=== PATIENT | female | born 2000 | race Caucasian/White ===

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

== ENCOUNTER → 2020-03-06 | Outpatient (CLI) | payer OTHER ==
[~2020-03-06] MED LIST: METHACHOLINE KIT (J7674) INH ONE
--- NOTE | 2020-03-06 11:13 | PFTRPT ---
Height: 64.00 Inches Weight: 175.00 Lbs BSA: 1.85 Diagnosis: J45.20 DATE: 03/06/2020 ORDERED BY: JOE Flaherty. QUALITY: Study of excellent technical quality. PROCEDURE: Under protocol, methacholine was administered. At a dose of 0.25 mg or 1.375 CDUs, a 28% decline in the FEV1 was noted. PC of 0.24 is significant. Flow rates did return to baseline post bronchodilator administration. IMPRESSION: Positive methacholine challenge study. MTDD
== END ==
LOC: M CARPUL 10:28
PROVIDERS: ATTEND Physician Assistant
DX: J45.20 Mild intermittent asthma, uncomplicated (principal)
CPT/HCPCS: 94070; 95070; J7674